=== PATIENT | female | born 1970 | race Hispanic/Latino ===

== ENCOUNTER 2024-01-11 06:39 | Day surgery (SDC) | payer BC ==
[~2024-01-11] VITALS: Ht 165.1 cm; Wt 86.2 kg
[2024-01-11] VITALS (11 sets, daily range): BP systolic 105–119; BP diastolic 58–74; PULSE 59–72; RESP 10–18
[~2024-01-11 06:39] MED LIST: FAMO20TA8 PO; IBUP-2070 PO
[2024-01-11] MEDS: 0.9%NACL 1000ML 1,000 ML IV ONE (07:30)
[2024-01-11] MEDS ORDERED: PROPOFOL 10 MG/ML 20ML VIAL IV ONE ×2 (07:58)
== END 2024-01-11 09:44 | disposition home or self-care (01) ==
LOC: ENDO 06:39 → DAH 06:39 → ENDO 09:44
PROVIDERS: ATTEND Internal Medicine
DX: Z12.11 Encounter for screening for malignant neoplasm of colon (principal); K64.4 Residual hemorrhoidal skin tags; K64.8 Other hemorrhoids; E66.9 Obesity, unspecified; K59.04 Chronic idiopathic constipation; Z68.31 Body mass index [BMI] 31.0-31.9, adult; Z88.6 Allergy status to analgesic agent; Z90.710 Acquired absence of both cervix and uterus; Z79.899 Other long term (current) drug therapy
CPT/HCPCS: 45378; J7030; J2704 ×2; A4620; A4215 ×2; A4223; A4222; A4221; A4663; A4606; J3490